=== PATIENT | female | born 1945 | race Caucasian/White ===

== ENCOUNTER 2020-02-09 19:41 | Emergency (ER) | payer MEDICARE, BC, OTHER ==
[~2020-02-09] VITALS: Ht 160 cm; Wt 60.0 kg
[~2020-02-09 19:41] MED LIST: ALLO300T2 PO; ASPI81TA85 PO; CALCCHW PO; LEVO500T PO; LISI5TAB PO; LORTTAB5 PO; METO1TAB87 PO; OMEP20CA3 PO; TYLE325T5 PO; VITAD1000T PO; tamoxifen PO
[2020-02-09] MEDS ORDERED: Vitamin D3 PO (19:58)
[2020-02-09] MEDS ORDERED: COLESTIPOL PO (19:58)
[2020-02-09] MEDS ORDERED: FERR240T PO (19:58)
[2020-02-09] MEDS ORDERED: CRES10TA PO (19:58)
[2020-02-09] MEDS ORDERED: ELIQ5TAB PO (19:58)
[2020-02-09] MEDS ORDERED: COMBAER6 INH (19:58)
[2020-02-09] MEDS ORDERED: DIGO0.123 PO (19:58)
[2020-02-09] MEDS ORDERED: HYDR-3713 PO (19:58)
[2020-02-09] MEDS ORDERED: MORPHINE 4 MG/ML 1ML VIAL/SYRINGE (J2270) IM ONE (20:30)
[2020-02-09] MEDS ORDERED: diazePAM 10MG/2ML SYRINGE (J3360 PER 5MG) IM ONE (20:30)
--- NOTE | 2020-02-09 21:12 | REPVR ---
PROCEDURE INFORMATION: Exam: XR Right Elbow Exam date and time: 02/09/2020 8:41 PM Age: 75 years old Clinical indication: Injury or trauma; Fall; Initial encounter; Sprain or strain; Shoulder; Right; Additional info: Right shoulder/elbow pain S/P fall TECHNIQUE: Imaging protocol: XR Right elbow. Views: 3 or more views. COMPARISON: No relevant prior studies available. FINDINGS: Bones/joints: Joint spaces are normal. No fracture or malalignment. Soft tissues: Normal. IMPRESSION: No fracture or malalignment. Electronically signed by: Lamine Orozco On 02/09/2020 21:11:50 PM
--- NOTE | 2020-02-09 21:13 | REPVR ---
PROCEDURE INFORMATION: Exam: XR Right Shoulder Exam date and time: 02/09/2020 8:41 PM Age: 75 years old Clinical indication: Injury or trauma; Fall; Initial encounter; Sprain or strain; Shoulder; Right; Additional info: Right shoulder/elbow pain S/P fall TECHNIQUE: Imaging protocol: XR Right shoulder. Views: 2 or more views. COMPARISON: No relevant prior studies available. FINDINGS: Bones/joints: There is anterior dislocation of the humeral head from the glenoid. No fracture is seen. 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 Degenerative changes in the spine. No fracture or bone lesions. Soft tissues: Normal. IMPRESSION: Anterior humeral dislocation. Electronically signed by: Lamine Orozco On 02/09/2020 21:13:16 PM
[2020-02-09 21:20] VITALS: BP 122/85
[2020-02-09] MEDS ORDERED: MORPHINE 10 MG/ML 1ML VIAL (J2270) IM ONE (21:30)
[2020-02-09] MEDS ORDERED: NORCO, ANEXSIA 5/325MG TABLET (HYDROcodone/ACETAMINOPHEN) PO ONE (21:45)
--- NOTE | 2020-02-09 21:58 | REPVR ---
PROCEDURE INFORMATION: Exam: XR Right Shoulder Exam date and time: 02/09/2020 9:48 PM Age: 75 years old Clinical indication: Injury or trauma; Fall; Follow-up exam; Dislocation; Shoulder; Right; Additional info: Post reduction TECHNIQUE: Imaging protocol: XR Right shoulder. Views: 1 view. COMPARISON: CR Shoulder, complete RIGHT 02/09/2020 8:16 PM FINDINGS: Bones/joints: Glenohumeral alignment appears normal following reduction. Probable impaction deformity in the posterior humeral head. No displaced fractures are seen. Acromioclavicular joint DJD. Soft tissues: Unremarkable. IMPRESSION: Normal glenohumeral alignment following closed reduction. Electronically signed by: Lamine Orozco On 02/09/2020 21:58:18 PM
== END 2020-02-09 21:56 | disposition home or self-care (01) ==
LOC: M ED 19:41
DX: S43.004A Unspecified dislocation of right shoulder joint, initial encounter (principal); W19.XXXA Unspecified fall, initial encounter; Y92.098 Other place in other non-institutional residence as the place of occurrence of the external cause; Y93.9 Activity, unspecified; Y99.9 Unspecified external cause status; I48.91 Unspecified atrial fibrillation; I10 Essential (primary) hypertension; K21.9 Gastro-esophageal reflux disease without esophagitis; Z87.891 Personal history of nicotine dependence; Z79.82 Long term (current) use of aspirin; Z79.01 Long term (current) use of anticoagulants; Z79.899 Other long term (current) drug therapy; Z88.6 Allergy status to analgesic agent
CPT/HCPCS: 23650; 73020; 73030; 73080; 96374; 96375; 99283; J2270; J3360

== ENCOUNTER 2021-01-25 11:32 | Emergency (ER) | payer MEDICARE, BC, OTHER ==
[~2021-01-25] VITALS: Ht 152.4 cm; Wt 53.8 kg
[~2021-01-25 11:32] MED LIST changes: +COLESTIPOL PO; +COMBAER6 INH; +CRES10TA PO; +DIGO0.123 PO; +ELIQ5TAB PO; +FERR240T PO; +HYDR-3713 PO; +Vitamin D3 PO
[2021-01-25] MEDS ORDERED: LIDOCAINE 2% MDV 20ML VIAL SC ONE (14:30)
[2021-01-25] MEDS ORDERED: BOOSTRIX/ADACEL VACCINE (DIPHTH/PERTUSS/ACELL/TETANUS) 0.5ML SYR IM ONE (15:20)
[2021-01-25 15:47] VITALS: BP 165/83
== END 2021-01-25 15:45 | disposition home or self-care (01) ==
LOC: M ED 11:32
DX: S61.217A Laceration without foreign body of left little finger without damage to nail, initial encounter (principal); W26.8XXA Contact with other sharp object(s), not elsewhere classified, initial encounter; Y92.099 Unspecified place in other non-institutional residence as the place of occurrence of the external cause; Y93.9 Activity, unspecified; Y99.9 Unspecified external cause status; I48.91 Unspecified atrial fibrillation; I10 Essential (primary) hypertension; J44.9 Chronic obstructive pulmonary disease, unspecified; K21.9 Gastro-esophageal reflux disease without esophagitis; M54.9 Dorsalgia, unspecified; Z79.82 Long term (current) use of aspirin; Z79.899 Other long term (current) drug therapy; Z88.6 Allergy status to analgesic agent